=== PATIENT | female | born 1930 | race Caucasian/White ===

== ENCOUNTER 2020-05-25 19:15 | Inpatient (IN) | payer MEDICARE ==
[~2020-05-25] VITALS: Ht 167.6 cm; Wt 45.6 kg
--- NOTE | 2020-05-25 19:36 | NUR ---
PT STATES NOW IS CLAUDIA JUAREZ, SAYS DAUGHTER HAS BEEN GIVING HER PEPTOBISMOL SINCE YEST. Addendum: 05/25/20 at 1941 by [email or web address] ON MONITOR NSR NO ECTOPY, RR UNLABORED. SIDE RAILS UP, CALL SUNITA IN REACH. WILL CONTINUE TO MONITOR.
--- NOTE | 2020-05-25 19:40 | NUR ---
FIELD START IV PATENT, SMOKERS COUGH PER REPORT MEDICS PT HOUSE SMELLED SO BAD OF SMOKE THEY HAD HER COME OUTSIDE, PT AMBULATORY ON SCENE.
--- NOTE | 2020-05-25 20:15 | NUR ---
PT SLEEPING, RR UNLABORED. PT HAS COURSE LS, COUGH LONG TIME SMOKER. NO N/V WHILE IN ER. WAITING FOR ERP EVAL. WILL CONTINUE TO MONITOR, NAD AT THIS TIME.
[2020-05-25] MEDS ORDERED: PROMETHAZINE 25 MG/ML, 1ML IM ONE (20:30)
[2020-05-25] MEDS ORDERED: SODIUM CHLORIDE FLUSH 10ML SYR IVF ONE (20:30)
[2020-05-25] MEDS ORDERED: SODIUM CHLORIDE 0.9% 1,000ML IVBOLUS ONE (20:30)
[2020-05-25] MEDS ORDERED: PROMETHAZINE 25 MG/ML, 1ML ONE (20:34)
[2020-05-25 20:48] LABS: BASOPHILS % (AUTO) 1 % (0-1); EOSINOPHILS % (AUTO) 1 % (1-7); LYMPHOCYTES % (AUTO) 18 % (22-44); MEAN CORPUSCULAR HEMOGLOBIN 30.1 pg (27.0-34.8); MEAN CORPUSCULAR HGB CONC 33.4 g/dL (32.4-35.8); MEAN PLATELET VOLUME 6.5 fL (7.4-10.4); MONOCYTES % (AUTO) 7 % (2-9); NEUTROPHILS % (AUTO) 73 % (42-75); PLATELET COUNT 338 x10^3/uL (130-400); RED BLOOD COUNT 4.86 x10^6/uL (3.82-5.3); RED CELL DISTRIBUTION WIDTH 14.1 % (9.6-15.2)
[2020-05-25 20:54] LABS: MD NO
[2020-05-25 20:59] LABS: ALANINE AMINOTRANSFERASE 14 U/L (12-78); ANION GAP 4 mmol/L (5-15); CALCIUM 9.8 mg/dL (8.5-10.1); CHLORIDE 113 mmol/L (98-107); CREATININE 0.99 mg/dL (0.55-1.02)
[2020-05-25 21:02] LABS: ALKALINE PHOSPHATASE 54 U/L (45-117); BILIRUBIN,TOTAL 0.5 mg/dL (0.2-1.0); TOTAL PROTEIN 7.4 g/dL (6.4-8.2)
--- NOTE | 2020-05-25 21:13 | NUR ---
LAB DRAWN, IVF INFUSING, MEDICATED PER ORDER WITH PHENERGAN IM. DAUGHTER AT BEDSIDE. WILL CONTINUE TO MONITOR.
--- NOTE | 2020-05-25 21:16 | NUR ---
WAITING FOR CT SCAN. VSS
--- NOTE | 2020-05-25 21:26 | NUR ---
IN AND OUT CATH VIA STERILE TECHNIQUE. CLEAR YELLOW URINE SENT TO LAB. PT WITH NO N/V POST MEDICATIONS. WAITING FOR CT. DAUGTHER AT BEDSIDE. VSS.
[2020-05-25] MEDS ORDERED: OMNIPAQUE 350 MG/ML, 100ML BOTTLE ONE (21:51)
--- NOTE | 2020-05-25 21:57 | NUR ---
back from ct, no n/v. vss, aidet provided.
[2020-05-25 22:27] LABS: MICROSCOPIC INDICATED
[2020-05-25] MEDS ORDERED: CEFTRIAXONE PMX 1GM/50ML 50 ML ONE (22:50)
[2020-05-25] MEDS: SODIUM CHLORIDE 0.9% 1,000 ML IV SCH (23:00)
[2020-05-25] MEDS ORDERED: ONDANSETRON 2MG/ML, 2ML IVPush ONE (23:00)
[2020-05-25] MEDS ORDERED: CEFTRIAXONE PMX 1GM/50ML 50 ML IV ONE (23:00)
[2020-05-25] MEDS ORDERED: ONDANSETRON 2MG/ML, 2ML ONE (23:05)
--- NOTE | 2020-05-25 23:13 | NUR ---
HOSPITALIST AT BEDSIDE. PT HAS NO N/V, NO PAIN. IV ABX INFUSING. OK FOR PO'S PER DR GAFFNEY. WAITING FOR MED/SURG BED. WILL CONTINUE TO MONITOR.
[2020-05-25] MEDS ORDERED: SODIUM CHLORIDE 0.9% 1,000 ML IV SCH (23:30)
[2020-05-25] MEDS ORDERED: ENALAPRILAT 1.25 MG/ML, 2ML IVPush PRN (23:30)
[2020-05-25] MEDS ORDERED: ONDANSETRON 2MG/ML, 2ML IVPush PRN (23:30)
[2020-05-25] MEDS ORDERED: METOCLOPRAMIDE 5 MG/ML, 2ML IVPush PRN (23:30)
[2020-05-25] MEDS ORDERED: DOCUSATE 100 MG CAPSULE PO PRN (23:30)
[2020-05-25] MEDS ORDERED: MAALOX/HYOSCYAMINE/LIDOCAINE 45 ML BTL PO ONE (23:30)
[2020-05-25] MEDS: HEPARIN 5,000 UNITS/ML, 1ML SQ SCH (23:30)
--- NOTE | 2020-05-26 01:01 | NUR ---
PT SLEEPING, NO N/V. WAITING FOR MED/SURG BED. STABLE PT.
--- NOTE | 2020-05-26 01:43 | NUR ---
RAPID COVID SWAB DONE AND WALKED TO THE LAB.
--- NOTE | 2020-05-26 01:52 | NUR ---
REPORT TO SABINO CARRILLO.
--- NOTE | 2020-05-26 03:06 | NUR ---
PT HAS NO N/V NO ABD PAIN. DRINKING PO FLUIDS. HAS PURWIC ON. VSS. WAITING FOR NEG COVID THEN TX.
[2020-05-26 04:20] VITALS: BP 111/56
[2020-05-26 06:25] LABS: BASOPHILS % (AUTO) 0 % (0-1); EOSINOPHILS % (AUTO) 1 % (1-7); LYMPHOCYTES % (AUTO) 15 % (22-44); MEAN CORPUSCULAR HEMOGLOBIN 29.6 pg (27.0-34.8); MEAN CORPUSCULAR HGB CONC 32.8 g/dL (32.4-35.8); MEAN PLATELET VOLUME 6.6 fL (7.4-10.4); MONOCYTES % (AUTO) 8 % (2-9); NEUTROPHILS % (AUTO) 75 % (42-75); PLATELET COUNT 310 x10^3/uL (130-400); RED BLOOD COUNT 4.61 x10^6/uL (3.82-5.3); RED CELL DISTRIBUTION WIDTH 14.2 % (9.6-15.2)
[2020-05-26 06:38] LABS: ANION GAP 4 mmol/L (5-15); CALCIUM 8.8 mg/dL (8.5-10.1); CHLORIDE 116 mmol/L (98-107); CREATININE 0.94 mg/dL (0.55-1.02)
[2020-05-26 06:56] LABS: MD NO
[2020-05-26 07:35] VITALS: BP 131/58
[2020-05-26] MEDS: NICOTINE 14MG/24 HR PATCH.TD24 TD SCH ×2 (09:00→19:18)
[2020-05-26] MEDS: PANTOPRAZOLE 40MG TABLET PO SCH (09:41)
[2020-05-26] MEDS: HEPARIN 5,000 UNITS/ML, 1ML SQ SCH ×3 (09:41→22:56)
[2020-05-26] MEDS: SODIUM CHLORIDE 0.9% 1,000 ML IV SCH ×2 (13:16→21:28)
[2020-05-26] MEDS ORDERED: METOCLOPRAMIDE 5 MG/ML, 2ML IVPush PRN (15:54)
[2020-05-26] MEDS ORDERED: QUETIAPINE 25MG TABLET PO PRN (16:30)
[2020-05-26] MEDS ORDERED: PHARMACY INSTRUCTION MC PRN (16:30)
[2020-05-26] MEDS ORDERED: INSTRUCTION SEE COMMENTS XX PRN (16:30)
[2020-05-26 16:39] VITALS: BP 136/83
[2020-05-26 20:40] VITALS: BP 148/68
[2020-05-26] MEDS: MELATONIN 3 MG TABLET PO SCH (21:28)
[2020-05-26] MEDS: ACETAMINOPHEN 325 MG TABLET PO PRN (22:53)
[2020-05-26] MEDS: CEFTRIAXONE PMX 1GM/50ML 50 ML IV SCH (22:56)
[2020-05-27 05:17] LABS: BASOPHILS % (AUTO) 1 % (0-1); EOSINOPHILS % (AUTO) 4 % (1-7); LYMPHOCYTES % (AUTO) 36 % (22-44); MEAN CORPUSCULAR HEMOGLOBIN 30.4 pg (27.0-34.8); MEAN CORPUSCULAR HGB CONC 33.6 g/dL (32.4-35.8); MEAN PLATELET VOLUME 6.6 fL (7.4-10.4); MONOCYTES % (AUTO) 10 % (2-9); NEUTROPHILS % (AUTO) 49 % (42-75); PLATELET COUNT 275 x10^3/uL (130-400); RED BLOOD COUNT 4.34 x10^6/uL (3.82-5.3); RED CELL DISTRIBUTION WIDTH 13.9 % (9.6-15.2)
[2020-05-27 05:25] LABS: MD NO
[2020-05-27 05:27] LABS: ANION GAP 6 mmol/L (5-15); CALCIUM 8.6 mg/dL (8.5-10.1); CHLORIDE 118 mmol/L (98-107); CREATININE 0.73 mg/dL (0.55-1.02)
[2020-05-27] MEDS: SODIUM CHLORIDE 0.9% 1,000 ML IV SCH ×3 (05:32→21:00)
[2020-05-27] MEDS: HEPARIN 5,000 UNITS/ML, 1ML SQ SCH ×4 (06:15→23:05)
[2020-05-27] MEDS: PANTOPRAZOLE 40MG TABLET PO SCH ×2 (06:16→06:22)
[2020-05-27 09:10] VITALS: BP 140/75
[2020-05-27 12:19] VITALS: BP 166/75
[2020-05-27 12:52] VITALS: BP 154/68
[2020-05-27] MEDS: NICOTINE 14MG/24 HR PATCH.TD24 TD SCH (20:00)
[2020-05-27] MEDS: MELATONIN 3 MG TABLET PO SCH (20:00)
[2020-05-27 21:28] VITALS: BP 125/61
[2020-05-27] MEDS: CEFTRIAXONE PMX 1GM/50ML 50 ML IV SCH (23:05)
[2020-05-28] MEDS: SODIUM CHLORIDE 0.9% 1,000 ML IV SCH ×2 (05:00→13:16)
[2020-05-28 05:56] LABS: BASOPHILS % (AUTO) 1 % (0-1); EOSINOPHILS % (AUTO) 3 % (1-7); LYMPHOCYTES % (AUTO) 28 % (22-44); MEAN CORPUSCULAR HEMOGLOBIN 29.8 pg (27.0-34.8); MEAN CORPUSCULAR HGB CONC 33.2 g/dL (32.4-35.8); MEAN PLATELET VOLUME 6.8 fL (7.4-10.4); MONOCYTES % (AUTO) 9 % (2-9); NEUTROPHILS % (AUTO) 59 % (42-75); PLATELET COUNT 283 x10^3/uL (130-400)
[2020-05-28 06:03] LABS: ANION GAP 3 mmol/L (5-15); CALCIUM 9.2 mg/dL (8.5-10.1); CHLORIDE 119 mmol/L (98-107); CREATININE 0.87 mg/dL (0.55-1.02)
[2020-05-28 06:16] LABS: MD NO
[2020-05-28 07:52] VITALS: BP 170/76
[2020-05-28] MEDS: HEPARIN 5,000 UNITS/ML, 1ML SQ SCH ×3 (08:19→23:30)
[2020-05-28] MEDS: PANTOPRAZOLE 40MG TABLET PO SCH (08:19)
[2020-05-28] MEDS: NICOTINE 14MG/24 HR PATCH.TD24 TD SCH (08:19)
[2020-05-28 09:30] VITALS: BP 129/73
[2020-05-28 12:34] VITALS: BP 178/75
[2020-05-28] MEDS ORDERED: LABETALOL 5MG/ML, 20ML IVPush ONE (13:00)
[2020-05-28 13:56] VITALS: BP 133/72
[2020-05-28 20:24] VITALS: BP 130/71
[2020-05-28] MEDS: MELATONIN 3 MG TABLET PO SCH (20:36)
[2020-05-28] MEDS: CEFTRIAXONE PMX 1GM/50ML 50 ML IV SCH (23:29)
[2020-05-29] MEDS: ACETAMINOPHEN 325 MG TABLET PO PRN (00:39)
[2020-05-29 02:27] VITALS: BP 146/77
[2020-05-29 07:20] VITALS: BP 146/92
[2020-05-29] MEDS: HEPARIN 5,000 UNITS/ML, 1ML SQ SCH (07:30)
[2020-05-29] MEDS: NICOTINE 14MG/24 HR PATCH.TD24 TD SCH (10:05)
[2020-05-29] MEDS: PANTOPRAZOLE 40MG TABLET PO SCH (10:06)
== END 2020-05-29 14:40 | disposition left against medical advice (07) | DRG 690 ==
LOC: ED 21:17 → EDIP 22:31 → 2NW 05-26 03:50 → 4NE 05-26 19:29
PROVIDERS: ADMIT Family Medicine; ATTEND Family Medicine
PROC: 0T9B70Z Drainage of Bladder with Drainage Device, Via Natural or Artificial Opening (ICD-10-PCS; principal; 2020-05-25)
DX: N10 Acute pyelonephritis (principal); A42.89 Other forms of actinomycosis; Z20.828 Contact with and (suspected) exposure to other viral communicable diseases; F17.210 Nicotine dependence, cigarettes, uncomplicated; N20.0 Calculus of kidney; N28.1 Cyst of kidney, acquired; Z60.2 Problems related to living alone; J43.9 Emphysema, unspecified; E86.0 Dehydration; Z87.11 Personal history of peptic ulcer disease; Z87.442 Personal history of urinary calculi
CPT/HCPCS: 36415; 74177; 80048; 80053; 81001; 83690; 85025; 87040; 87077; 87086; 87635; 93005; G0378; J0696; J1644; J2550; Q9967; J7030